=== PATIENT | female | born 1970 | race American Indian/Alaskan Native ===

== ENCOUNTER 2021-05-14 06:57 | Emergency (ER) | payer SELFPAY ==
--- NOTE | 2021-05-14 07:55 | Event Note ---
ED Screening Note Date of service: 05/14/21 Time: 07:50 ED Screening Note: 50-year-old female history of tobacco use presents emergency department chief complaint of chest pain and bilateral leg pain. Pain has been ongoing for the past few days. Reproducible with palpation. Denies any recent travel or immobilization, lower extremity edema. She describes pain as tightness nonradiating. This initial assessment/diagnostic orders/clinical plan/treatment(s) is/are subject to change based on patients health status, clinical progression and re- assessment by fellow clinical providers in the ED. Further treatment and workup at subsequent clinical providers discretion. Patient/guardian urged not to elope from the ED as their condition may be serious if not clinically assessed and managed. Initial orders include: Chest pain protocol
--- NOTE | 2021-05-14 08:20 | Emergency Department Report ---
ED Chest Pain HPI - General Chief Complaint: Chest Pain Stated Complaint: CHEST PAIN & SEVERE LEG PAIN Time Seen by Provider: 05/14/21 08:16 Source: patient Mode of arrival: Ambulatory Limitations: Physical Limitation - History of Present Illness Initial Comments: Patient presents with a 3 to 4-day history of chest pain and leg cramps. She describing a chest pain in the left anterior chest. This does not radiate or migrate. It is described as aching. It is worse with palpation. It is not worse with exertion. It does not change with position. She does not feel short of breath. She has never had pain like this before. Again, it has been present for 3 to 4 days and constant. She also reports having some "muscle spasms" in her legs. She states that the right leg is worse than the left but they both ache. She describes an intermittent pain in the thigh area. This is anterior only. She states that she just does not feel good. She does report that the calf area is also aching. She denies trauma. She denies recent travel. She has not taken anything [id number] for pain as of yet. - Related Data Home Medications Medication Instructions Recorded Confirmed Last Taken Pregabalin [Lyrica] 50 mg PO TID 05/14/21 05/14/21 Unknown Previous Rx's Medication Instructions Recorded Last Taken Type Ibuprofen [Motrin] 800 mg PO Q8HR PRN #20 tablet 05/14/21 Unknown Rx Metaxalone [Skelaxin] 800 mg PO TID #9 tablet 05/14/21 Unknown Rx Allergies Allergy/AdvReac Type Severity Reaction Status Date / Time tramadol AdvReac Itching Verified 05/14/21 07:28 Heart Score - HEART Score History: Slightly suspicious EKG: Normal Age: 45-65 Risk factors: 1-2 risk factors Troponin: < normal limit HEART Score: 2 - EKG Read Time Time EKG Completed: 07:39 EKG Read Time: 08:13 ED Review of Systems ROS: Stated complaint: CHEST PAIN & SEVERE LEG PAIN Other details as noted in HPI Comment: All other systems reviewed and negative Constitutional: denies: fever Eyes: denies: eye pain ENT: denies: throat pain Respiratory: denies: cough Cardiovascular: as per HPI Endocrine: denies: unexplained weight loss Gastrointestinal: denies: abdominal pain Genitourinary: denies: dysuria Musculoskeletal: as per HPI. denies: back pain Skin: denies: rash Neurological: denies: headache Hematological/Lymphatic: denies: easy bruising ED Past Medical Hx - Past Medical History Hx Hypertension: No Hx Diabetes: Yes (only takes insulin as needed) - Family History Family history: diabetes, other (Negative for heart disease) - Social History Smoking Status: Never Smoker Substance Use Type: None - Medications Home Medications: Home Medications Medication Instructions Recorded Confirmed Last Taken Type Ibuprofen [Motrin] 800 mg PO Q8HR PRN #20 tablet 05/14/21 Unknown Rx Metaxalone [Skelaxin] 800 mg PO TID #9 tablet 05/14/21 Unknown Rx Pregabalin [Lyrica] 50 mg PO TID 05/14/21 05/14/21 Unknown History ED Physical Exam - General Limitations: No Limitations, Other (Pulse ox noted and normal) General appearance: alert, in no apparent distress, obese, other (Appears uncomfortable) - Head Head exam: Present: atraumatic, normocephalic, normal inspection - Eye Eye exam: Present: normal appearance, PERRL, EOMI. Absent: scleral icterus - ENT ENT exam: Present: mucous membranes moist, normal external ear exam - Neck Neck exam: Present: normal inspection. Absent: meningismus - Respiratory Respiratory exam: Present: normal lung sounds bilaterally, chest wall tenderness (Left anterior chest which reproduces the patient's pain), other (No crepitus). Absent: respiratory distress - Cardiovascular Cardiovascular Exam: Present: regular rate, normal rhythm - GI/Abdominal GI/Abdominal exam: Present: soft. Absent: distended, tenderness - Extremities Exam Extremities exam: Present: normal capillary refill, other (Thigh tenderness bilaterally. No warmth or erythema. There is no knee tenderness.). Absent: calf tenderness - Back Exam Back exam: Absent: CVA tenderness (R), CVA tenderness (L) - Neurological Exam Neurological exam: Present: alert, oriented X3, CN II-XII intact. Absent: reflexes normal - Psychiatric Psychiatric exam: Present: normal affect, normal mood - Skin Skin exam: Present: warm, dry ED Course Vital Signs 05/14/21 05/14/21 05/14/21 07:28 07:52 08:52 Temperature 98.4 F Pulse Rate 100 H 75 Respiratory 18 Rate Blood Pressure 152/76 149/85 Blood Pressure [Left] O2 Sat by Pulse 100 100 100 Oximetry 05/14/21 05/14/21 05/14/21 09:00 09:05 09:10 Temperature 97.4 F L Pulse Rate 97 H 100 H Respiratory 10 L 15 Rate Blood Pressure 158/73 Blood Pressure 178/97 [Left] O2 Sat by Pulse 99 100 Oximetry 05/14/21 05/14/21 05/14/21 09:16 09:30 09:46 Temperature Pulse Rate 98 H 102 H 101 H Respiratory 11 L 8 L 9 L Rate Blood Pressure 178/97 177/87 167/130 Blood Pressure [Left] O2 Sat by Pulse 100 99 99 Oximetry 05/14/21 05/14/21 05/14/21 10:00 10:04 10:11 Temperature Pulse Rate 100 H 104 H 111 H Respiratory 11 L Rate Blood Pressure 161/90 161/90 153/81 Blood Pressure [Left] O2 Sat by Pulse 99 Oximetry 05/14/21 05/14/21 05/14/21 10:16 10:30 10:34 Temperature 97.4 F L Pulse Rate 99 H Respiratory Rate Blood Pressure 153/81 132/81 Blood Pressure [Left] O2 Sat by Pulse 98 100 Oximetry 05/14/21 05/14/21 05/14/21 10:46 11:00 11:02 Temperature Pulse Rate 96 H 98 H 95 H Respiratory 14 11 L Rate Blood Pressure 130/78 137/74 Blood Pressure [Left] O2 Sat by Pulse 99 99 Oximetry - Reevaluation(s) Reevaluation #1: 05/14/21 08:19 EKG have been noted. Old records reviewed. IV and labs were ordered. Reevaluation #2: 05/14/21 10:00 Labs have been reviewed. Heart score is normal. Patient got no symptomatic improvement from ketorolac. Nitro has been ordered. Repeat EKG and troponin have been ordered. Reevaluation #3: 05/14/21 11:18 Repeat labs have been noted. Patient is resting comfortably. She was discharged. KEZIA score - Kezia Score Age > 65: (0) No Aspirin use within the Past 7 Days: (0) No 3 or more CAD Risk Factors: (0) No 2 or more Angina events in past 24 hrs: (0) No Known CAD with more than 50% Stenosis: (0) No Elevated Cardiac Markers: (0) No ST Deviation Greater than 0.5mm: (0) No KEZIA Score: 0 ED Medical Decision Making - Lab Data Result diagrams: 05/14/21 08:21 05/14/21 08:21 Rhythm strip: Normal sinus rhythm without ectopy. Monitor observe 10 seconds - EKG Data -: EKG Interpreted by Ms - EKG Data 05/14/21 08:39 [id number]-EKG shows sinus tachycardia 103. QRS is normal at 64. QT corrected is nor mal at 454. Patient has no ST elevation to suggest STEMI. There is no ST depression suggestive of ischemia. There is good R wave progression. This is a normal EKG. 05/14/21 11:19 Second EKG was obtained and was unchanged. Intervals are normal. There was no ST segment elevation suggestive of [place]. - Radiology Data Radiology results: report reviewed - Medical Decision Making Patient presented with chest pain and "leg jumping." She was concern for possible muscle spasm versus electrolyte derangement. She has had a negative troponin x2. There is no evidence of ACS. She has a sufficiently low heart score that allows for outpatient evaluation. She does not have symptoms suggestive of PE or DVT. There was no pulse deficit to suggest aortic dissection. Radiographically, there was no pneumonia to account for her chest pain. Etiology for this leg spasm and pain is not known. There is no pulsatile mass to suggest aortic aneurysm. This is not visible as far as muscle spasm goes. She was treated symptomatically and referred for outpatient follow-up. Critical Care Time: No Critical care attestation.: If time is entered above; I have spent that time in minutes in the direct care of this critically ill patient, excluding procedure time. ED Disposition Clinical Impression: Left-sided chest pain, Bilateral leg pain Disposition: HOME / SELF CARE / HOMELESS Is pt being admited?: No Condition: Stable Instructions: Nonspecific Chest Pain, Adult, Pain Without a Known Cause Additional Instructions: Drink water. Return for problems. Follow-up with your regular doctor or the referral doctor for recheck. Do not drive while taking muscle relaxants. Prescriptions: Ibuprofen [Motrin] 800 mg PO Q8HR PRN #20 tablet PRN Reason: Pain, Moderate (4-6) Metaxalone [Skelaxin] 800 mg PO TID #9 tablet Referrals: PRIMARY CARE, [Primary Care Provider] - 3-5 Days JASMINA MARCOS MD [Staff Physician] - 3-5 Days
[2021-05-14] MEDS ORDERED: KETOROLAC 30 MG/1 ML INJ IV ONE (08:21)
[2021-05-14 09:02] LABS: Alanine Aminotransferase 18 units/L (7-56); Albumin 3.9 g/dL (3.9-5); BUN/Creatinine Ratio 10; Blood Urea Nitrogen 13 mg/dL (7-17); Calcium 9.8 mg/dL (8.4-10.2); Hemolysis Index 2
[2021-05-14 09:05] LABS: Basophils # (Auto) 0.1 K/mm3 (0.0-0.1); Basophils % (Auto) 0.8 % (0.0-1.8); Eosinophils # (Auto) 0.1 K/mm3 (0.0-0.4); Eosinophils % (Auto) 1.3 % (0.0-4.3); Hematocrit 27.4 % (30.3-42.9); Lymphocytes # (Auto) 2.6 K/mm3 (1.2-5.4); Lymphocytes % (Auto) 31.8 % (13.4-35.0); Mean Corpuscular HGB Conc 36 % (30-34); Mean Corpuscular Volume 91 fl (79-97); Monocytes # (Auto) 0.5 K/mm3 (0.0-0.8); Monocytes % (Auto) 5.7 % (0.0-7.3); Platelet Count 309 K/mm3 (140-440); Red Blood Count 3.02 M/mm3 (3.65-5.03)
--- NOTE | 2021-05-14 09:28 | XRay Report ---
CHEST 2 VIEWS INDICATION: Chest Pain. COMPARISON: none FINDINGS: Support devices: None. Heart: Within normal limits. Lungs/pleura: No acute air space or interstitial disease. No pneumothorax. Additional findings: None. IMPRESSION: No acute findings. Signer Name: Morales Mitchell Jr, MD Signed: 05/14/2021 9:23 AM Workstation Name: [id number]
[2021-05-14] MEDS: NITROGLYCERIN 0.4 MG TAB SUBL SL PRN ×2 (10:04→10:11)
[2021-05-14 10:10] LABS: INR 0.95 (0.87-1.13)
[2021-05-14] MEDS ORDERED: fentaNYL 100 MCG/2 ML INJ IV ONE (10:45)
--- NOTE | 2021-05-14 11:19 | Electrocardiograph Report ---
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
[2021-05-14 12:13] VITALS: BP 134/67
--- NOTE | 2021-05-15 10:04 | Electrocardiograph Report ---
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
== END 2021-05-14 12:45 | disposition home or self-care (01) ==
LOC: ED 06:57
DX: R07.89 Other chest pain (principal); M79.601 Pain in right arm; M79.602 Pain in left arm
CPT/HCPCS: 36415; 71046; 80053; 84484; 85025; 85610; 85730; 93005; 96374; 96375; 99284; J1885; J3010

== ENCOUNTER 2021-06-07 02:03 | Emergency (ER) | payer SELFPAY ==
[2021-06-07] MEDS: SODIUM CHLORIDE 0.9% 1000 ML 1,000 ML IV ONE (03:01)
[2021-06-07] MEDS: MORPHINE 2 MG/1 ML INJ IV ONE (03:01)
[2021-06-07] MEDS: ONDANSETRON 4 MG/2 ML INJ IV ONE (03:01)
--- NOTE | 2021-06-07 03:15 | Emergency Department Report ---
HPI - General Chief Complaint: Abdominal Pain Time Seen by Provider: 06/07/21 02:22 - HPI HPI: 4 to 5 days of diffuse abdominal severe intermittently constant sharp pain associated with nausea and about 4-5 episodes of yellow watery emesis today and no diarrhea constipation dysuria fever chills or any other associated symptoms. She has not taken any medications for this. Movement makes the pain worse and nothing makes the pain better. ED Past Medical Hx - Past Medical History Hx Hypertension: No Hx Diabetes: Yes (only takes insulin as needed) - Surgical History Past Surgical History?: No Additional Surgical History: Right arm rotator cuff repair - Family History Family history: no significant - Social History Smoking Status: Never Smoker Substance Use Type: None - Medications Home Medications: Home Medications Medication Instructions Recorded Confirmed Last Taken Type Ibuprofen [Motrin] 800 mg PO Q8HR PRN #20 tablet 05/14/21 Unknown Rx Metaxalone [Skelaxin] 800 mg PO TID #9 tablet 05/14/21 Unknown Rx Pregabalin [Lyrica] 50 mg PO TID 05/14/21 05/14/21 Unknown History Esomeprazole Magnesium [NexIUM] 40 mg PO QDAY #15 cap 06/07/21 Unknown Rx Ondansetron [Zofran Odt] 4 mg PO Q6H PRN #12 tab.rapdis 06/07/21 Unknown Rx ED Review of Systems ROS: Stated complaint: ABD PAIN Other details as noted in HPI Comment: All other systems reviewed and negative Physical Exam - Physical Exam Vital Signs: Vital Signs 06/07/21 06/07/21 02:20 02:22 Temperature 98.4 F Pulse Rate 98 H Respiratory 20 Rate Blood Pressure 115/80 [Left] O2 Sat by Pulse 100 100 Oximetry Physical Exam: Physical Exam Constitutional: General: Moderate acute distress. Appearance: No diaphoresis. HENT: Head: Normocephalic. Eyes: Pupils: Pupils are equal, round, and reactive to light. Neck: Musculoskeletal: Normal range of motion. Cardiovascular: Rate and Rhythm: Normal rate and regular rhythm. Pulses: Intact distal pulses. Heart sounds: Normal heart sounds. No murmur. Pulmonary: Effort: No respiratory distress. Breath sounds: No wheezing or rales. Chest: Chest wall: No tenderness. Abdominal: General: There is no distension. Palpations: There is no mass. Tenderness: There is diffuse mild to moderate abdominal tenderness with no pulsatile masses. There is no guarding or rebound. Musculoskeletal: Normal range of motion. Skin: General: Skin is warm and dry. Neurological: Mental Status: Alert and oriented to person, place, and time. Psychiatric: Mood and Affect: Mood and affect normal. Cognition and Memory: Memory normal. Judgment: Judgment normal. ED Course Vital Signs 06/07/21 06/07/21 02:20 02:22 Temperature 98.4 F Pulse Rate 98 H Respiratory 20 Rate Blood Pressure 115/80 [Left] O2 Sat by Pulse 100 100 Oximetry - Reevaluation(s) Reevaluation #1: 06/07/21 05:02 The patient felt better with the medications that we gave her in the emergency department. Her chemistries all look within normal limits other than a slightly elevated creatinine and some anemia that are probably both related. The patient did tell me that she has been told that she has chronic renal sufficiency in the past. CAT scan showed thickening of the stomach consistent with gastritis which is consistent with her symptoms. I will place her on proton pump inhibitor as well as antiemetics for the next several days and she will come back if any other issues arise otherwise follow-up with the physician I provided her. ED Medical Decision Making - Lab Data Result diagrams: 06/07/21 02:53 06/07/21 02:53 Critical care attestation.: If time is entered above; I have spent that time in minutes in the direct care of this critically ill patient, excluding procedure time. ED Disposition Clinical Impression: Gastritis Disposition: 01 HOME / SELF CARE / HOMELESS Is pt being admited?: No Does the pt Need Aspirin: No Condition: Stable Instructions: Abdominal Pain (ED), Gastritis, Adult, [id number] Prescriptions: Esomeprazole Magnesium [NexIUM] 40 mg PO QDAY #15 cap Ondansetron [Zofran Odt] 4 mg PO Q6H PRN #12 tab.rapdis PRN Reason: Nausea Referrals: PRIMARY CARE,MD [Primary Care Provider] - 3-5 Days Print Language: CROATIAN
[2021-06-07 03:31] LABS: Basophils # (Auto) 0.2 K/mm3 (0.0-0.1); Basophils % (Auto) 1.9 % (0.0-1.8); Eosinophils # (Auto) 0.2 K/mm3 (0.0-0.4); Eosinophils % (Auto) 1.7 % (0.0-4.3); Hematocrit 27.4 % (30.3-42.9); Lymphocytes # (Auto) 1.4 K/mm3 (1.2-5.4); Lymphocytes % (Auto) 14.6 % (13.4-35.0); Mean Corpuscular HGB Conc 33 % (30-34); Mean Corpuscular Volume 94 fl (79-97); Monocytes # (Auto) 0.6 K/mm3 (0.0-0.8); Monocytes % (Auto) 6.1 % (0.0-7.3); Platelet Count 432 K/mm3 (140-440); Red Blood Count 2.91 M/mm3 (3.65-5.03); Red Cell Distribution Width 17.5 % (13.2-15.2)
[2021-06-07 03:43] LABS: Albumin 3.7 g/dL (3.9-5); Bilirubin,Direct 0.3 mg/dL (0-0.2); Calcium 9.4 mg/dL (8.4-10.2)
--- NOTE | 2021-06-07 04:54 | Cat Scan Report ---
CT ABDOMEN AND PELVIS WITHOUT CONTRAST HISTORY: Lower abd pain with N/V and constipation x 7 days COMPARISON: None TECHNIQUE: Routine abdominal and pelvic CT exam performed without contrast. Lack of intravenous cont rast limits evaluation of the vascular and solid organs.. All CT scans at this location are performed using CT dose reduction for ALARA by means of automated exposure control. FINDINGS: CT ABDOMEN: Lung Bases: No significant abnormality. Liver: No significant abnormality. Biliary: No significant abnormality. Spleen: No significant abnormality. Unenlarged. Pancreas: No significant abnormality. Adrenals: No significant abnormality. Kidneys: No significant abnormality. Lymphatics: No lymphadenopathy. Vasculature: No significant abnormality. Bowel/Peritoneum: There is diffuse wall thickening in the distal stomach suggesting gastritis. There is no obstruction or free air. CT PELVIC: : No significant abnormality. Lymphatics: No lymphadenopathy. Osseous Structures: No aggressive appearing osseous lesions. Additional Findings: None IMPRESSION: 1. Wall thickening in the distal stomach suggesting gastritis. No obstruction or free air. Signer Name: Raciel Browne MD Signed: 06/07/2021 4:49 AM Workstation Name: [id number]
[2021-06-07] MEDS: PANTOPRAZOLE 40 MG INJ IV ONE (05:39)
[2021-06-07 06:30] VITALS: BP 135/79
== END 2021-06-07 06:29 | disposition home or self-care (01) ==
LOC: ED 02:03
DX: K29.70 Gastritis, unspecified, without bleeding (principal); E11.9 Type 2 diabetes mellitus without complications; Z88.6 Allergy status to analgesic agent; Z79.899 Other long term (current) drug therapy
CPT/HCPCS: 36415; 74176; 80048; 80076; 83690; 85025; 87040; 96361; 96374; 96375; 99284; C9113; J2270; J2405; J7030; Q0162

== ENCOUNTER 2021-06-27 17:30 | Emergency (ER) | payer SELFPAY ==
[2021-06-28] MEDS ORDERED: SUCRALFATE 1 GM/10 ML ORAL LIQD PO ONE (00:33)
[2021-06-28] MEDS ORDERED: ACETAMINOPHEN 325 MG TAB PO ONE (00:33)
[2021-06-28] MEDS ORDERED: PANTOPRAZOLE 40 MG TAB PO ONE (00:33)
[2021-06-28] MEDS ORDERED: ONDANSETRON 4 MG ODT TAB PO STA (00:34)
--- NOTE | 2021-06-28 00:35 | Emergency Department Report ---
ED General Adult HPI - General Chief complaint: Pain General Stated complaint: PAIN Time Seen by Provider: 06/28/21 00:24 Source: patient, RN notes reviewed, old records reviewed Mode of arrival: Ambulatory Limitations: No Limitations - History of Present Illness Initial comments: This is a 50-year-old female who is a long-term tobacco smoker, who was p resumptively diagnosed with gastritis based off the CT scan result at this hospital a few weeks ago. The patient presents to the ER with a complaint of a few weeks lower abdominal cramping, constipation, and epigastric burning, without improvement in symptoms. The patient is still smoking. The patient denies travel, surgery, immobilization, DVT/PE risk factors. The patient denies dysuria. She had some nausea and vomiting, which was clear, yellow, green, and occasionally bloody. It is now resolved. She denies bright red blood per rectum. The symptoms have been going on for weeks to months. Has not followed up with an outpatient primary care doctor or GI physician that she is aware of. -: week(s) Location: abdomen Radiation: abdomen Quality: aching Consistency: constant Improves with: rest Worsens with: eating, movement - Related Data Previous Rx's Medication Instructions Recorded Last Taken Type Esomeprazole Magnesium [NexIUM] 40 mg PO QDAY #15 cap 06/28/21 Unknown Rx Ferrous Sulfate [Ferrous Sulfate 324 mg PO BID #60 tab 06/28/21 Unknown Rx 324 MG] Multivitamin with Folic Acid [Cvs 400 mcg PO QDAY #30 tablet 06/28/21 Unknown Rx One Daily Essential Tablet] Nicotine Polacrilex [Nicotine Gum] 4 mg BC PRN #1 pack 06/28/21 Unknown Rx Ondansetron [Zofran ODT TAB] 4 mg PO Q6H PRN #12 tab.rapdis 06/28/21 Unknown Rx polyethylene glycoL 3350 [Miralax 17 gm PO QDAY #30 packet 06/28/21 Unknown Rx 3350] Allergies Allergy/AdvReac Type Severity Reaction Status Date / Time tramadol AdvReac Itching Verified 05/14/21 07:28 ED Review of Systems ROS: Stated complaint: CHEST PAINS/SOB Other details as noted in HPI Constitutional: denies: fever Eyes: denies: eye discharge ENT: denies: hearing loss Respiratory: denies: wheezing Cardiovascular: chest pain (Epigastric abdominal) Gastrointestinal: abdominal pain, nausea, vomiting, constipation. denies: melena, hematochezia Genitourinary: denies: dysuria Musculoskeletal: myalgia Skin: other (Lower extremity) Neurological: denies: weakness ED Past Medical Hx - Past Medical History Hx Hypertension: No Hx Diabetes: Yes (only takes insulin as needed) - Surgical History Additional Surgical History: Right arm rotator cuff repair - Social History Smoking Status: Never Smoker Substance Use Type: None - Medications Home Medications: Home Medications Medication Instructions Recorded Confirmed Last Taken Type Esomeprazole Magnesium [NexIUM] 40 mg PO QDAY #15 cap 06/28/21 Unknown Rx Ferrous Sulfate [Ferrous Sulfate 324 mg PO BID #60 tab 06/28/21 Unknown Rx 324 MG] Multivitamin with Folic Acid [Cvs 400 mcg PO QDAY #30 tablet 06/28/21 Unknown Rx One Daily Essential Tablet] Nicotine Polacrilex [Nicotine Gum] 4 mg BC PRN #1 pack 06/28/21 Unknown Rx Ondansetron [Zofran ODT TAB] 4 mg PO Q6H PRN #12 tab.rapdis 06/28/21 Unknown Rx polyethylene glycoL 3350 [Miralax 17 gm PO QDAY #30 packet 06/28/21 Unknown Rx 3350] ED Physical Exam - General Limitations: No Limitations General appearance: alert, in no apparent distress - Head Head exam: Present: atraumatic, normocephalic - Eye Eye exam: Present: normal appearance, EOMI. Absent: nystagmus - ENT ENT exam: Present: normal exam, normal orophraynx, mucous membranes moist, normal external ear exam - Neck Neck exam: Present: normal inspection, full ROM - Respiratory Respiratory exam: Present: normal lung sounds bilaterally, chest wall tenderness. Absent: respiratory distress, wheezes, rales, rhonchi, stridor, decreased breath sounds - Cardiovascular Cardiovascular Exam: Present: regular rate, normal rhythm, normal heart sounds. Absent: bradycardia, tachycardia, irregular rhythm, systolic murmur, diastolic murmur, rubs, gallop - GI/Abdominal GI/Abdominal exam: Present: soft, tenderness, other (There is epigastric tenderness to palpation.). Absent: distended, guarding, rebound, rigid, pulsatile mass - Extremities Exam Extremities exam: Present: normal inspection, full ROM, pedal edema (1+ edema bilateral lower extremity), other (2+ pulses noted in the bilateral upper and lower extremities. There is no palpable cord. negative Homans sign. Muscular compartments are soft. The pelvis is stable.). Absent: calf tenderness - Back Exam Back exam: Present: normal inspection. Absent: tenderness, CVA tenderness (R), CVA tenderness (L), paraspinal tenderness, vertebral tenderness - Neurological Exam Neurological exam: Present: alert, oriented X3, other (No facial droop. Tongue midline. Extraocular movements intact bilaterally. Facial sensation intact to light touch in V1, V2, V3 distribution bilaterally. 5 and a 5 strength in 4 extremities. Sensation intact to light touch in 4 extremities.). Absent: motor sensory deficit - Psychiatric Psychiatric exam: Present: normal affect, normal mood - Skin Skin exam: Present: warm, dry, intact, normal color. Absent: rash ED Course Vital Signs 06/27/21 06/28/21 06/28/21 17:50 01:24 02:29 Temperature 98.8 F 98.6 F Pulse Rate 98 H 76 Respiratory 16 20 Rate Blood Pressure 152/76 146/79 [Right] O2 Sat by Pulse 100 96 Oximetry O2 Sat by Pulse 99 Oximetry [ Digit-Finger] - Reevaluation(s) Reevaluation #1: 06/28/21 02:17 Differential diagnosis, including but not limited to: GERD, gastritis, hiatal hernia, costochondritis, pneumonia, encounter for tobacco cessation, dependent edema, renal insufficiency, hepatic insufficiency, vitamin deficiency Assessment and plan: 50-year-old female, who is afebrile, with reassuring vital signs, clinically sober, with a GCS of 15, who is not currently tachycardic, tachypneic or hypoxic, who is low risk by Wells criteria for pulmonary embolism, who is low risk for major adverse cardiac event as per heart score, who is presenting with subacute/chronic epigastric and abdominal pain present for weeks. She has had a CT scan of the abdomen pelvis at this facility which suggested gastritis. The patient continues to smoke. The patient has not had an endoscopic evaluation. Her EKG is unremarkable. Her laboratory studies show improved renal function, chronic anemia, and unremarkable hepatic function. Patient educated as to the natural history of gastritis. I extensively counseled the patient to discontinue tobacco consumption. Patient also advised that she does not have insurance. Patient advised to go to the [employer] website, and apply for insurance. Patient also advised that she may consider using the funds that she provides for tobacco and smoke products to instead pay for private health i nsurance. Patient also advised that she may qualify for financial assistance, depending on her application. Patient is observed in this ER for hours without clinical decompensation. The patient will need to follow-up with an outpatient primary care doctor, and/or training project manager. Troponin negative x1 in the context of weeks of symptoms. 06/28/21 02:18 06/28/21 02:29 Went back to evaluate the patient, and she was laying on her left side, crying, and stating that her abdomen was really hurting her. I suspect that this is constipation. However, we will place an IV, give pain medication, and obtain CT scan of the abdomen pelvis to assess for interval change 06/28/21 03:[address] scan of the abdomen pelvis negative for acute findings. Patient appears improved. Ambulatory with a steady gait. May follow-up as an outpatient. - Pulse Oximetry Interpretation Digit-Finger Initial Pulse Oximetry Readin O2 Sat by Pulse Oximetry: 99 Actions Taken: none ED Medical Decision Making - Lab Data Result diagrams: 06/28/21 00:40 06/28/21 00:40 Vital Signs 06/27/21 06/28/21 17:50 01:24 Temperature 98.8 F 98.6 F Pulse Rate 98 H 76 Respiratory 16 20 Rate Blood Pressure 152/76 146/79 [Right] O2 Sat by Pulse 100 96 Oximetry Lab Results 06/28/21 06/28/21 06/28/21 Range/Units 00:40 00:40 00:40 WBC 8.3 (4.5-11.0) K/mm3 RBC 2.86 L (3.65-5.03) M/mm3 Hgb 9.2 L (10.1-14.3) gm/dl Hct 26.8 L (30.3-42.9) % MCV 94 (79-97) fl MCH 32 (28-32) pg MCHC 35 H (30-34) % RDW 15.2 (13.2-15.2) % Plt Count 300 (140-440) K/mm3 PT 13.8 (12.2-14.9) Sec. INR 0.96 (0.87-1.13) APTT 33.5 (24.2-36.6) Sec. Sodium 142 (137-145) mmol/L Potassium 3.9 (3.6-5.0) mmol/L Chloride 107.2 H (98-107) mmol/L Carbon Dioxide 22 (22-30) mmol/L Anion Gap 17 mmol/L BUN 11 (7-17) mg/dL Creatinine 1.1 (0.6-1.2) mg/dL Estimated GFR > 60 ml/min BUN/Creatinine Ratio 10 % Glucose 97 (65-100) mg/dL Calcium 9.1 (8.4-10.2) mg/dL Magnesium (1.7-2.3) mg/dL Total Bilirubin 0.30 (0.1-1.2) mg/dL AST 17 (5-40) units/L ALT 16 (7-56) units/L Alkaline Phosphatase 111 (35-129) units/L Troponin T < 0.010 (0.00-0.029) ng/mL Total Protein 6.3 (6.3-8.2) g/dL Albumin 3.7 L (3.9-5) g/dL Albumin/Globulin Ratio 1.4 % 06/28/21 Range/Units 00:40 WBC (4.5-11.0) K/mm3 RBC (3.65-5.03) M/mm3 Hgb (10.1-14.3) gm/dl Hct (30.3-42.9) % MCV (79-97) fl MCH (28-32) pg MCHC (30-34) % RDW (13.2-15.2) % Plt Count (140-440) K/mm3 PT (12.2-14.9) Sec. INR (0.87-1.13) APTT (24.2-36.6) Sec. Sodium (137-145) mmol/L Potassium (3.6-5.0) mmol/L Chloride (98-107) mmol/L Carbon Dioxide (22-30) mmol/L Anion Gap mmol/L BUN (7-17) mg/dL Creatinine (0.6-1.2) mg/dL Estimated GFR ml/min BUN/Creatinine Ratio % Glucose (65-100) mg/dL Calcium (8.4-10.2) mg/dL Magnesium 1.90 (1.7-2.3) mg/dL Total Bilirubin (0.1-1.2) mg/dL AST (5-40) units/L ALT (7-56) units/L Alkaline Phosphatase (35-129) units/L Troponin T (0.00-0.029) ng/mL Total Protein (6.3-8.2) g/dL Albumin (3.9-5) g/dL Albumin/Globulin Ratio % - EKG Data -: EKG Interpreted by Nv EKG shows normal: sinus rhythm Rate: normal - EKG Data 06/28/21 02:14 The EKG today is interpreted at 17: 44 Sinus rhythm, 99 bpm. Normal axis, normal P wave axis, QTC 4 5 9 ms. Nonspecific abnormalities, not a STEMI. High left ventricular voltage. Unchanged from prior EKG from May 2021 - Radiology Data Radiology results: pending, report reviewed, image reviewed CT ABDOMEN AND PELVIS WITH CONTRAST INDICATION / CLINICAL INFORMATION: Acute lower abdominal pain. TECHNIQUE: Axial CT images were obtained through the abdomen and pelvis after 100 cc Omnipaque [address] scans at this location are performed using CT dose reduction for Picreel by means of automated exposure control. COMPARISON: CT abdomen and pelvis without contrast from 06/07/2021. FINDINGS: LOWER CHEST: No significant abnormality. LIVER: No significant abnormality. GALLBLADDER: No significant abnormality. BILE DUCTS: No significant abnormality. PANCREAS: No significant abnormality. SPLEEN: No significant abnormality. ADRENALS: No significant abnormality. RIGHT KIDNEY/URETER: No significant abnormality. LEFT KIDNEY/URETER: No significant abnormality. STOMACH/SMALL BOWEL: Previously reported gastric thickening is again noted along the distal gastric body and gastric antrum. No other acute findings. COLON: No significant abnormality. APPENDIX: No significant abnormality. PERITONEUM: No free fluid. No free air. No fluid collection. LYMPH NODES: No significant adenopathy. VASCULATURE: No significant abnormality. URINARY BLADDER: No significant abnormality. REPRODUCTIVE ORGANS: No significant abnormality. ADDITIONAL FINDINGS: None. BONES: No acute findings or significant interval changes. IMPRESSION: Persistent gastric thickening is most concerning for gastritis. No other acute findings. Signer Name: Juan Pratt MD Signed: 06/28/2021 2:31 AM Workstation Name: [id number] CT ABDOMEN AND PELVIS WITHOUT CONTRAST HISTORY: Lower abd pain with N/V and constipation x 7 days COMPARISON: None TECHNIQUE: Routine abdominal and pelvic CT exam performed without contrast. Lack of intravenous contrast limits evaluation of the vascular and solid organs.. All CT scans at this location are performed using CT dose reduction for ALARA by means of automated exposure control. FINDINGS: CT ABDOMEN: Lung Bases: No significant abnormality. Liver: No significant abnormality. Biliary: No significant abnormality. Spleen: No significant abnormality. Unenlarged. Pancreas: No significant abnormality. Adren als: No significant abnormality. Kidneys: No significant abnormality. Lymphatics: No lymphadenopathy. Vasculature: No significant abnormality. Bowel/Peritoneum: There is diffuse wall thickening in the distal stomach suggesting gastritis. There is no obstruction or free air. CT PELVIC: : No significant abnormality. Lymphatics: No lymphadenopathy. Osseous Structures: No aggressive appearing osseous lesions. Additional Findings: None IMPRESSION: 1. Wall thickening in the distal stomach suggesting gastritis. No obstruction or free air. Signer Name: Raciel Browne MD Signed: 06/07/2021 3:49 AM Workstation Name: [id number][id number] ABDOMEN 3 VIEW(S) INDICATION: Chest and abdominal pain. COMPARISON: CT abdomen and pelvis without contrast from 06/07/2021. FINDINGS: Bowel gas pattern: No significant abnormality. Free air: None seen. Stones: None seen. Chest: No acute findings. Additional Findings: No additional significant findings. IMPRESSION: 1. No acute findings. Signer Name: Juan Pratt MD Signed: 06/28/2021 12:07 AM Workstation Name: [id number] Critical care attestation.: If time is entered above; I have spent that time in minutes in the direct care of this critically ill patient, excluding procedure time. ED Disposition Clinical Impression: Anemia, Encounter for tobacco use cessation counseling, Epigastric abdominal pain, Swelling of lower extremity, Lower abdominal pain Disposition: 01 HOME / SELF CARE / HOMELESS Is pt being admited?: No Does the pt Need Aspirin: No Condition: Good Additional Instructions: Recommend that the patient discontinue tobacco consumption immediately. Long- term consumption of tobacco is a risk factor for stroke, heart attack, disability, and loss of quality of life. Tobacco consumption may also irritate the lining of the stomach and intestines. In terms of the patient's complaint of constipation, please consume 6 cups of water per day, plenty of fiber, vegetables, and lean protein, patient may take the MiraLAX medication as needed and directed. Please note that diet and lifestyle modifications typically take 4 to 6 weeks to improve symptoms of constipation. We also anticipate that it will take weeks to months to improve patient's epigastric abdominal pain, which is likely gastritis. We do recommend that the patient follow-up with a training project manager, such as those who work at [facility] for presumed gastritis, for endoscopic evaluation, within the next 6 weeks. We also recommend that the patient follow-up with a primary care doctor within the next month to establish outpatient primary care. Recommend that the patient avoid consumption of alcohol, tobacco, and smoke products. Recommend that patient take a multivitamin as directed. Patient may take an [id number] Tylenol or Pepcid as needed for physical pain. Patient also found to have mild anemia, and should also follow-up with the outpatient training project manager for evaluation for colonoscopy, to screen for colon cancer. Patient may take the iron sulfate supplementation as directed, as needed for anemia, where the patient may consume foods that are high in protein and iron, such as red meat, salmon, fish, chicken, and green leafy vegetables. Iron sulfate may cause constipation, and black tarry stools. Patient may take the MiraLAX as needed for constipation. Please return to the emergency room right away with new pain, worsened pain, migration of pain, projectile vomiting, change in mental status, confusion, inability tolerate liquid feeds, new, worsened or different symptoms not present on the initial emergency room evaluation [facility] is a local gastroenterology practice. The [facility] is a local Medical Center. Patient may reference to [employer] website and apply for private health ins urance. The patient may qualify for financial services education consultant, she is encouraged to go to the website, and follow the instructions Prescriptions: Multivitamin with Folic Acid [Cvs One Daily Essential Tablet] 400 mcg PO QDAY #30 tablet Ferrous Sulfate [Ferrous Sulfate 324 MG] 324 mg PO BID #60 tab polyethylene glycoL 3350 [Miralax 3350] 17 gm PO QDAY #30 packet Esomeprazole Magnesium [NexIUM] 40 mg PO QDAY #15 cap Nicotine Polacrilex [Nicotine Gum] 4 mg BC PRN #1 pack Ondansetron [Zofran ODT TAB] 4 mg PO Q6H PRN #12 tab.rapdis PRN Reason: Nausea Referrals: [facility] [Provider Group] - 3-5 Days [facility] [Provider Group] - 3-5 Days Forms: Work/School Release Form(ED)
[2021-06-28 00:53] LABS: Hematocrit 26.8 % (30.3-42.9); Hemoglobin 9.2 gm/dl (10.1-14.3); Mean Corpuscular HGB Conc 35 % (30-34); Mean Corpuscular Volume 94 fl (79-97); Platelet Count 300 K/mm3 (140-440); Red Blood Count 2.86 M/mm3 (3.65-5.03); Red Cell Distribution Width 15.2 % (13.2-15.2)
[2021-06-28 01:03] LABS: INR 0.96 (0.87-1.13)
[2021-06-28 01:04] LABS: Partial Thromboplastin Time 33.5 Sec. (24.2-36.6)
--- NOTE | 2021-06-28 01:12 | XRay Report ---
ABDOMEN 3 VIEW(S) INDICATION: Chest and abdominal pain. COMPARISON: CT abdomen and pelvis without contrast from 06/07/2021. FINDINGS: Bowel gas pattern: No significant abnormality. Free air: None seen. Stones: None seen. Chest: No acute findings. Additional Findings: No additional significant findings. IMPRESSION: 1. No acute findings. Signer Name: Juan Pratt MD Signed: 06/28/2021 1:07 AM Workstation Name: [id number]
[2021-06-28 01:26] VITALS: BP 146/79
[2021-06-28 02:02] LABS: Alanine Aminotransferase 16 units/L (7-56); Albumin 3.7 g/dL (3.9-5); BUN/Creatinine Ratio 10; Blood Urea Nitrogen 11 mg/dL (7-17); Calcium 9.1 mg/dL (8.4-10.2); Hemolysis Index 8
[2021-06-28] MEDS ORDERED: ONDANSETRON 4 MG/2 ML INJ IV ONE (02:28)
[2021-06-28] MEDS ORDERED: MORPHINE 4 MG/1 ML INJ IV ONE (02:28)
--- NOTE | 2021-06-28 03:36 | Cat Scan Report ---
CT ABDOMEN AND PELVIS WITH CONTRAST INDICATION / CLINICAL INFORMATION: Acute lower abdominal pain. TECHNIQUE: Axial CT images were obtained through the abdomen and pelvis after 100 cc Omnipaque [address] scans at this location are performed using CT dose reduction for ALARA by means of automated exposure control. COMPARISON: CT abdomen and pelvis without contrast from 06/07/2021. FINDINGS: LOWER CHEST: No significant abnormality. LIVER: No significant abnormality. GALLBLADDER: No significant abnormality. BILE DUCTS: No significant abnormality. PANCREAS: No significant abnormality. SPLEEN: No significant abnormality. ADRENALS: No significant abnormality. RIGHT KIDNEY/URETER: No significant abnormality. LEFT KIDNEY/URETER: No significant abnormality. STOMACH/SMALL BOWEL: Previously reported gastric thickening is again noted along the distal gastric b rasheed and gastric antrum. No other acute findings. COLON: No significant abnormality. APPENDIX: No significant abnormality. PERITONEUM: No free fluid. No free air. No fluid collection. LYMPH NODES: No significant adenopathy. VASCULATURE: No significant abnormality. URINARY BLADDER: No significant abnormality. REPRODUCTIVE ORGANS: No significant abnormality. ADDITIONAL FINDINGS: None. BONES: No acute findings or significant interval changes. IMPRESSION: Persistent gastric thickening is most concerning for gastritis. No other acute findings. Signer Name: Juan Pratt MD Signed: 06/28/2021 3:31 AM Workstation Name: [id number]
--- NOTE | 2021-06-29 16:57 | Electrocardiograph Report ---
[facility] Test Date: 2021-06-27 Test Time: 17:44:27 Pat Name: ESTEFANI BECKER Department: Room: Gender: F Sas Developer Analyst: MARIOLA : 1970 Requested By: CHA GARCIA Order Number: [id number] Reading MD: Bal Spencer Measurements Intervals [place] Rate: 99 P: 83 AK: 130 QRS: 60 QRSD: 66 T: 76 QT: 358 QTc: 459 Interpretive Statements Sinus rhythm Compared to ECG 05/14/2021 10:28:08 No significant change Electronically Signed On 06-29-2021 16:56:32 EDT by Bal Spencer
== END 2021-06-28 04:07 | disposition home or self-care (01) ==
LOC: ED 17:30
DX: D64.9 Anemia, unspecified (principal); R10.13 Epigastric pain; R10.30 Lower abdominal pain, unspecified; R22.40 Localized swelling, mass and lump, unspecified lower limb; E11.9 Type 2 diabetes mellitus without complications; Z88.6 Allergy status to analgesic agent; Z79.899 Other long term (current) drug therapy
CPT/HCPCS: 36415; 74022; 74177; 80053; 83735; 84484; 85027; 85610; 85730; 93005; 96374; 96375; 99284; J2270; J2405; Q9967; J3490; Q0162

== ENCOUNTER 2021-08-16 03:06 | Emergency (ER) | payer SELFPAY ==
[2021-08-16] MEDS ORDERED: MORPHINE 4 MG/1 ML INJ IV ONE (14:28)
[2021-08-16] MEDS ORDERED: SODIUM CHLORIDE 0.9% 1000 ML 1,000 ML IV ONE (14:28)
[2021-08-16] MEDS ORDERED: ONDANSETRON 4 MG/2 ML INJ IV ONE (14:28)
[2021-08-16 15:35] LABS: Basophils % (Auto) 0.7 % (0.0-1.8); Eosinophils # (Auto) 0.1 K/mm3 (0.0-0.4); Hematocrit 29.8 % (30.3-42.9); Hemoglobin 9.7 gm/dl (10.1-14.3); Lymphocytes # (Auto) 1.8 K/mm3 (1.2-5.4); Lymphocytes % (Auto) 34.6 % (13.4-35.0); Mean Corpuscular HGB Conc 33 % (30-34); Mean Corpuscular Volume 90 fl (79-97); Monocytes # (Auto) 0.5 K/mm3 (0.0-0.8); Monocytes % (Auto) 9.3 % (0.0-7.3); Platelet Count 284 K/mm3 (140-440); Red Blood Count 3.32 M/mm3 (3.65-5.03); Red Cell Distribution Width 15.4 % (13.2-15.2)
[2021-08-16 16:07] LABS: Bilirubin,Urine NEG (Negative); Blood,Urine NEG (Negative); Color,Urine Yellow (Yellow); Protein,Urine <15 mg/dL mg/dL (Negative); Urobilinogen,Urine < 2.0 mg/dL (<2.0)
[2021-08-16 16:09] LABS: Bacteria,Urine 2+ /HPF (Negative); Mucus,Urine FEW /HPF
[2021-08-16 16:15] LABS: Alanine Aminotransferase 6 units/L (7-56); Albumin 3.8 g/dL (3.9-5); BUN/Creatinine Ratio 12; Blood Urea Nitrogen 14 mg/dL (7-17); Calcium 9.2 mg/dL (8.4-10.2); Hemolysis Index 3
[2021-08-16 16:21] LABS: Bilirubin,Direct < 0.2 mg/dL (0-0.2)
[2021-08-16 16:23] LABS: HCG Qualitative,Urine Positive (Negative)
--- NOTE | 2021-08-16 16:36 | Emergency Department Report ---
<KATIANA RAMOS - Last Filed: 08/16/21 17:23> ED Abdominal Pain HPI - General Chief Complaint: Abdominal Pain Stated Complaint: ABDOMINAL PAIN Time Seen by Provider: 08/16/21 14:14 Source: patient, EMS Mode of arrival: Stretcher Limitations: No Limitations - History of Present Illness Initial Comments: This is a 50-year-old female nontoxic, well nourished in appearance, no acute signs of distress presents to the ED with c/o of nausea and vomiting and pelvic pain 2 weeks. Patient stated has some diarrhea. Patient describes vomiting as food content and yellow gastric acid. Patient describes pelvic pain as cramping and aching with level of 8/10 diffuse. Patient denies chest pain, short of breath, fever, hemoptysis, blood in stool, chills, headache, stiff neck, numbness or tingling. Patient denies any diarrhea or constipation. Denies any blood in stool. Patient denies any recent travels. Patient stated allergies to tramadol. Patient stated last menstrual cycle was in about 2013. -: week(s) Radiation: other (pelvic) Migration to: no migration Severity: mild Severity scale (0 -10): 8 Quality: cramping, aching Consistency: intermittent Improves With: nothing Worsens With: nothing Associated Symptoms: nausea, vomiting, diarrhea. denies: fever, chills, constipation, dysuria, hematemesis, hematochezia, melena, hematuria, anorexia, syncope - Related Data Previous Rx's Medication Instructions Recorded Last Taken Type Esomeprazole Magnesium [NexIUM] 40 mg PO QDAY #15 cap 06/28/21 Unknown Rx Ferrous Sulfate [Ferrous Sulfate 324 mg PO BID #60 tab 06/28/21 Unknown Rx 324 MG] Multivitamin with Folic Acid [[facility] 400 mcg PO QDAY #30 tablet 06/28/21 Unknown Rx One Daily Essential Tablet] Nicotine Polacrilex [Nicotine Gum] 4 mg BC PRN #1 pack 06/28/21 Unknown Rx Ondansetron [Zofran ODT TAB] 4 mg PO Q6H PRN #12 tab.rapdis 06/28/21 Unknown Rx polyethylene glycoL 3350 [Miralax 17 gm PO QDAY #30 packet 06/28/21 Unknown Rx 3350] HYDROcodone/APAP 5-325 [[place] 1 each PO Q6HR PRN #5 tablet 08/16/21 Unknown Rx 5/325] Allergies Allergy/AdvReac Type Severity Reaction Status Date / Time tramadol AdvReac Itching Verified 05/14/21 07:28 ED Review of Systems Comment: All other systems reviewed and negative Constitutional: denies: chills, fever Eyes: denies: eye pain, eye discharge, vision change ENT: denies: ear pain, throat pain Respiratory: denies: cough, shortness of breath, wheezing Cardiovascular: denies: chest pain, palpitations Endocrine: no symptoms reported Gastrointestinal: nausea, vomiting, other (pelvic pain). denies: abdominal pain, diarrhea, constipation, hematemesis, melena, hematochezia Genitourinary: denies: urgency, dysuria, discharge Musculoskeletal: denies: back pain, joint swelling, arthralgia Skin: denies: rash, lesions Neurological: denies: headache, weakness, paresthesias Psychiatric: denies: anxiety, depression Hematological/Lymphatic: denies: easy bleeding, easy bruising ED Past Medical Hx - Past Medical History Hx Hypertension: No Hx Diabetes: Yes (only takes insulin as needed) - Surgical History Additional Surgical History: Right arm rotator cuff repair - Social History Smoking Status: Never Smoker Substance Use Type: None - Medications Home Medications: Home Medications Medication Instructions Recorded Confirmed Last Taken Type Esomeprazole Magnesium [NexIUM] 40 mg PO QDAY #15 cap 06/28/21 Unknown Rx Ferrous Sulfate [Ferrous Sulfate 324 mg PO BID #60 tab 06/28/21 Unknown Rx 324 MG] Multivitamin with Folic Acid [[facility] 400 mcg PO QDAY #30 tablet 06/28/21 Unknown Rx One Daily Essential Tablet] Nicotine Polacrilex [Nicotine Gum] 4 mg BC PRN #1 pack 06/28/21 Unknown Rx Ondansetron [Zofran ODT TAB] 4 mg PO Q6H PRN #12 tab.rapdis 06/28/21 Unknown Rx polyethylene glycoL 3350 [Miralax 17 gm PO QDAY #30 packet 06/28/21 Unknown Rx 3350] HYDROcodone/APAP 5-325 [[place] 1 each PO Q6HR PRN #5 tablet 08/16/21 Unknown Rx 5/325] ED Physical Exam - General Limitations: No Limitations General appearance: alert, in no apparent distress - Head Head exam: Present: atraumatic, normocephalic - Eye Eye exam: Present: normal appearance - Neck Neck exam: Present: normal inspection, full ROM. Absent: tenderness, meningismus, lymphadenopathy - Respiratory Respiratory exam: Present: normal lung sounds bilaterally. Absent: respiratory distress, wheezes, rales, rhonchi, stridor, chest wall tenderness, accessory muscle use, decreased breath sounds, prolonged expiratory - Cardiovascular Cardiovascular Exam: Present: regular rate, normal rhythm, normal heart sounds. Absent: bradycardia, tachycardia, irregular rhythm, systolic murmur, diastolic murmur, rubs, gallop - GI/Abdominal GI/Abdominal exam: Present: soft, tenderness (lower abdomen area), normal bowel sounds. Absent: distended, guarding, rebound, rigid, diminished bowel sounds - Extremities Exam Extremities exam: Present: normal inspection, full ROM, normal capillary refill. Absent: tenderness - Back Exam Back exam: Present: normal inspection, full ROM. Absent: tenderness, CVA tenderness (R), CVA tenderness (L), muscle spasm, paraspinal tenderness, vertebral tenderness, rash noted - Neurological Exam Neurological exam: Present: alert, oriented X3, normal gait - Psychiatric Psychiatric exam: Present: normal affect, normal mood - Skin Skin exam: Present: warm, dry, intact, normal color. Absent: rash ED Course - Reevaluation(s) Reevaluation #1: 08/16/21 16:39 Patient is speaking in full sentences with no signs of distress noted. - Consultations Consultation #1: 08/16/21 17:24 At this time patient is signed out to Sania Matthew during for further evaluation, treatment, and appropriate disposition. ED Medical Decision Making - Lab Data Result diagrams: 08/16/21 15:03 08/16/21 15:03 Lab Results 08/16/21 08/16/21 08/16/21 Range/Units 15:03 15:03 15:03 WBC 5.1 (4.5-11.0) K/mm3 RBC 3.32 L (3.65-5.03) M/mm3 Hgb 9.7 L (10.1-14.3) gm/dl Hct 29.8 L (30.3-42.9) % MCV 90 (79-97) fl MCH 29 (28-32) pg MCHC 33 (30-34) % RDW 15.4 H (13.2-15.2) % Plt Count 284 (140-440) K/mm3 Lymph % (Auto) 34.6 (13.4-35.0) % [place] % (Auto) 9.3 H (0.0-7.3) % Eos % (Auto) 2.0 (0.0-4.3) % Baso % (Auto) 0.7 (0.0-1.8) % Lymph # (Auto) 1.8 (1.2-5.4) K/mm3 [place] # (Auto) 0.5 (0.0-0.8) K/mm3 Eos # (Auto) 0.1 (0.0-0.4) K/mm3 Baso # (Auto) 0.0 (0.0-0.1) K/mm3 Seg Neutrophils % 53.4 (40.0-70.0) % Seg Neutrophils # 2.7 (1.8-7.7) K/mm3 Sodium (137-145) mmol/L Potassium (3.6-5.0) mmol/L Chloride (98-107) mmol/L Carbon Dioxide (22-30) mmol/L Anion Gap mmol/L BUN (7-17) mg/dL Creatinine (0.6-1.2) mg/dL Estimated GFR ml/min BUN/Creatinine Ratio % Glucose (65-100) mg/dL Calcium (8.4-10.2) mg/dL Total Bilirubin (0.1-1.2) mg/dL Direct Bilirubin (0-0.2) mg/dL Indirect Bilirubin mg/dL AST (5-40) units/L ALT (7-56) units/L Alkaline Phosphatase (35-129) units/L Total Protein (6.3-8.2) g/dL Albumin (3.9-5) g/dL Albumin/Globulin Ratio % Lipase 40 (13-60) units/L HCG, Quant 5.12 H (0-4) mIU/mL Urine Color (Yellow) Urine Turbidity (Clear) Urine pH (5.0-7.0) Ur Specific [place] (1.003-1.030) Urine Protein (Negative) mg/dL Urine Glucose (UA) (Negative) mg/dL Urine Ketones (Negative) mg/dL Urine Blood (Negative) Urine Nitrite (Negative) Urine Bilirubin (Negative) Urine Urobilinogen (<2.0) mg/dL Ur Leukocyte Esterase (Negative) Urine WBC (Auto) (0.0-6.0) /HPF Urine RBC (Auto) (0.0-6.0) /HPF U Epithel Cells (Auto) (0-13.0) /HPF Urine Bacteria (Auto) (Negative) /HPF Urine Mucus /HPF Urine Yeast (Budding) /HPF Urine HCG, Qual (Negative) 08/16/21 08/16/21 08/16/21 Range/Units 15:03 15:44 Unknown WBC (4.5-11.0) K/mm3 RBC (3.65-5.03) M/mm3 Hgb (10.1-14.3) gm/dl Hct (30.3-42.9) % MCV (79-97) fl MCH (28-32) pg MCHC (30-34) % RDW (13.2-15.2) % Plt Count (140-440) K/mm3 Lymph % (Auto) (13.4-35.0) % [place] % (Auto) (0.0-7.3) % Eos % (Auto) (0.0-4.3) % Baso % (Auto) (0.0-1.8) % Lymph # (Auto) (1.2-5.4) K/mm3 [place] # (Auto) (0.0-0.8) K/mm3 Eos # (Auto) (0.0-0.4) K/mm3 Baso # (Auto) (0.0-0.1) K/mm3 Seg Neutrophils % (40.0-70.0) % Seg Neutrophils # (1.8-7.7) K/mm3 Sodium 143 (137-145) mmol/L Potassium 4.2 (3.6-5.0) mmol/L Chloride 107.9 H (98-107) mmol/L Carbon Dioxide 24 (22-30) mmol/L Anion Gap 15 mmol/L BUN 14 (7-17) mg/dL Creatinine 1.2 (0.6-1.2) mg/dL Estimated GFR 58 ml/min BUN/Creatinine Ratio 12 % Glucose 160 H (65-100) mg/dL Calcium 9.2 (8.4-10.2) mg/dL Total Bilirubin 0.20 (0.1-1.2) mg/dL Direct Bilirubin < 0.2 (0-0.2) mg/dL Indirect Bilirubin 0.0 mg/dL AST 9 (5-40) units/L ALT 6 L (7-56) units/L Alkaline Phosphatase 71 (35-129) units/L Total Protein 7.0 (6.3-8.2) g/dL Albumin 3.8 L (3.9-5) g/dL Albumin/Globulin Ratio 1.2 % Lipase (13-60) units/L HCG, Quant (0-4) mIU/mL Urine Color Yellow (Yellow) Urine Turbidity Slightly-cloudy (Clear) Urine pH 5.0 (5.0-7.0) Ur Specific [place] 1.010 (1.003-1.030) Urine Protein <15 mg/dl (Negative) mg/dL Urine Glucose (UA) 50 (Negative) mg/dL Urine Ketones Neg (Negative) mg/dL Urine Blood Neg (Negative) Urine Nitrite Pos (Negative) Urine Bilirubin Neg (Negative) Urine Urobilinogen < 2.0 (<2.0) mg/dL Ur Leukocyte Esterase Lg (Negative) Urine WBC (Auto) 56.0 H (0.0-6.0) /HPF Urine RBC (Auto) 11.0 (0.0-6.0) /HPF U Epithel Cells (Auto) 14.0 H (0-13.0) /HPF Urine Bacteria (Auto) 2+ (Negative) /HPF Urine Mucus Few /HPF Urine Yeast (Budding) 1+ /HPF Urine HCG, Qual Positive A (Negative) - Medical Decision Making 50-year-old female that presents with UTI, pelvic pain with nausea vomiting w/ positive test. Patient is stable and was examined by me. Vital signs at this time are stable. Patient signed out to Dr. Edgar during end of shift for further evaluation, treatment and appropriate disposition. At time of sign out, the patient does not seem toxic or ill in appearance. No acute signs of distress noted. Patient agrees to ED plan of care. No further questions noted by the patient. ED Disposition Clinical Impression: Nausea & vomiting, Lower abdominal pain, Positive test Disposition: HOME / SELF CARE / HOMELESS Condition: Stable Instructions: Abdominal Pain (ED), Nausea and Vomiting, Adult Referrals: PRIMARY CARE, [Primary Care Provider] - 3-5 Days <SEMAJ EDGAR - Last Filed: 08/16/21 19:41> ED Review of Systems ROS: Stated complaint: ABDOMINAL PAIN Other details as noted in HPI ED Course Vital Signs 08/16/21 08/16/21 03:17 15:43 Temperature 98.6 F 98.7 F Pulse Rate 88 90 Respiratory 16 18 Rate Blood Pressure 148/89 153/76 [Right] O2 Sat by Pulse 100 100 Oximetry ED Medical Decision Making - Lab Data Result diagrams: 08/16/21 15:03 08/16/21 15:03 - Medical Decision Making Quantitative hCG 5.12 corresponding to gestation of up to 3 weeks. Transvaginal ultrasound shows normal right ovary however they were unable to visualize the uterus or left ovary. Given patient's age and low hCG level, false positive is possible. CBC and CMP grossly unremarkable. Patient stable for discharge home with return precautions. Follow-up with PCP/OB within 1 week. Critical care attestation.: If time is entered above; I have spent that time in minutes in the direct care of this critically ill patient, excluding procedure time. ED Disposition Is pt being admited?: No Does the pt Need Aspirin: No Time of Disposition: 19:40
[2021-08-16] MEDS ORDERED: HYDROcodone/ACETAMINOPHEN 5-325 MG TAB PO ONE (19:39)
[2021-08-16] MEDS ORDERED: MORPHINE 4 MG/1 ML INJ IM ONE (19:39)
--- NOTE | 2021-08-16 19:50 | Ultrasound Report ---
US OB <= 14 weeks fetus, US OB transvaginal INDICATION / CLINICAL INFORMATION: pelvic pain. TECHNIQUE: Transabdominal and Transvaginal. Duplex Color Doppler used: Yes. COMPARISON: None available FINDINGS: UTERUS: Uterus measures 7.8 x 4.9 x 5.5 cm. Multiple myometrial masses are present throughout the [place], likely reflecting uterine fibroids, largest measuring 2.4 cm. Endometrial stripe is not visualiz ed. No intrauterine is identified. RIGHT ADNEXA: No significant ovarian cyst or mass. Normal color Doppler blood flow. LEFT ADNEXA: Left ovary is not seen. No suspicious adnexal cyst or mass. URINARY BLADDER: No significant abnormality. FREE FLUID: None. ADDITIONAL FINDINGS: None. IMPRESSION: 1. Fibroid uterus. Endometrial stripe is not visualized due to multiple fibroids. No intrauterine pre gnancy is identified. Recommend continued follow-up with beta hCG, as clinically indicated. 2. Nonvisualization of the left ovary. No significant adnexal cyst or mass identified. Signer Name: Garth Hinojosa MD Signed: 08/16/2021 7:45 PM Workstation Name: [id number]
--- NOTE | 2021-08-16 19:50 | Ultrasound Report ---
US OB <= 14 weeks fetus, US OB transvaginal INDICATION / CLINICAL INFORMATION: pelvic pain. TECHNIQUE: Transabdominal and Transvaginal. Duplex Color Doppler used: Yes. COMPARISON: None available FINDINGS: UTERUS: Uterus measures 7.8 x 4.9 x 5.5 cm. Multiple myometrial masses are present throughout the [place], likely reflecting uterine fibroids, largest measuring 2.4 cm. Endometrial stripe is not visualiz ed. No intrauterine is identified. RIGHT ADNEXA: No significant ovarian cyst or mass. Normal color Doppler blood flow. LEFT ADNEXA: Left ovary is not seen. No suspicious adnexal cyst or mass. URINARY BLADDER: No significant abnormality. FREE FLUID: None. ADDITIONAL FINDINGS: None. IMPRESSION: 1. Fibroid uterus. Endometrial stripe is not visualized due to multiple fibroids. No intrauterine pre gnancy is identified. Recommend continued follow-up with beta hCG, as clinically indicated. 2. Nonvisualization of the left ovary. No significant adnexal cyst or mass identified. Signer Name: Garth Hinojosa MD Signed: 08/16/2021 7:45 PM Workstation Name: [id number]
[2021-08-16 20:01] VITALS: BP 152/77
== END 2021-08-16 20:01 | disposition home or self-care (01) ==
LOC: ED 03:06
DX: R11.2 Nausea with vomiting, unspecified (principal); R10.30 Lower abdominal pain, unspecified; Z32.01 Encounter for pregnancy test, result positive
CPT/HCPCS: 36415; 76801; 76817; 80048; 80076; 81001; 81025; 83690; 84702; 85025; 87086; 96361; 96372; 96374; 96375; 99284; J2270; J2405; J7030

== ENCOUNTER 2021-08-21 22:14 | Emergency (ER) | payer SELFPAY ==
[2021-08-22 08:48] LABS: Basophils % (Auto) 0.8 % (0.0-1.8); Eosinophils # (Auto) 0.2 K/mm3 (0.0-0.4); Hematocrit 34.1 % (30.3-42.9); Lymphocytes # (Auto) 1.9 K/mm3 (1.2-5.4); Lymphocytes % (Auto) 36.1 % (13.4-35.0); Mean Corpuscular HGB Conc 32 % (30-34); Mean Corpuscular Volume 90 fl (79-97); Monocytes # (Auto) 0.4 K/mm3 (0.0-0.8); Monocytes % (Auto) 7.7 % (0.0-7.3); Platelet Count 356 K/mm3 (140-440); Red Blood Count 3.78 M/mm3 (3.65-5.03); Red Cell Distribution Width 15.4 % (13.2-15.2)
[2021-08-22 09:19] LABS: Albumin 4.2 g/dL (3.9-5); BUN/Creatinine Ratio 8; Blood Urea Nitrogen 11 mg/dL (7-17); Calcium 9.5 mg/dL (8.4-10.2); Hemolysis Index 23
[2021-08-22 09:29] LABS: Alanine Aminotransferase < 5 units/L (7-56)
[2021-08-22] MEDS ORDERED: DICYCLOMINE 10 MG/5 ML ORAL LIQD PO ONE (10:48)
[2021-08-22] MEDS ORDERED: ALUM-MAG HYDROXIDE-SIMETHICONE 200-200-20MG/5ML ORAL LIQD 30 ML PO ONE (10:49)
[2021-08-22] MEDS ORDERED: LIDOCAINE VISCOUS 2% 15 ML ORAL LIQD PO ONE (10:49)
[2021-08-22] MEDS ORDERED: oxyCODONE /ACETAMINOPHEN 5-325MG TAB PO ONE (10:50)
[2021-08-22] MEDS ORDERED: ONDANSETRON 4 MG ODT TAB PO ONE (10:50)
--- NOTE | 2021-08-22 11:34 | XRay Report ---
XR abdomen 1V ap, XR chest routine 2V INDICATION / CLINICAL INFORMATION: abd pain, r/o constipation. COMPARISON: None available. FINDINGS: TUBES / LINES: None. CHEST: Heart size is normal. Lungs are clear. No pleural effusion or pneumothorax. BOWEL GAS PATTERN: Bowel gas pattern is nonobstructive. Moderate colonic stool burden. FREE AIR / EXTRALUMINAL GAS: None seen. ADDITIONAL FINDINGS: No significant additional findings. IMPRESSION: 1. No acute abnormality of the chest or abdomen. 2. Moderate colonic stool burden, compatible with constipation. Signer Name: Garth Hinojosa MD Signed: 08/22/2021 11:29 AM Workstation Name: [id number]
[2021-08-22 14:16] LABS: Bilirubin,Urine NEG (Negative); Blood,Urine NEG (Negative); Color,Urine Yellow (Yellow); Protein,Urine <15 mg/dL mg/dL (Negative); Urobilinogen,Urine < 2.0 mg/dL (<2.0)
[2021-08-22 14:33] LABS: Bacteria,Urine 2+ /HPF (Negative); Hyaline Casts,Urine 6 /LPF; Mucus,Urine FEW /HPF
[2021-08-22] MEDS ORDERED: MAGNESIUM CITRATE 300 ML ORAL LIQD PO ONE (14:42)
[2021-08-22] MEDS ORDERED: ONDANSETRON 4 MG/2 ML INJ IV ONE (14:42)
[2021-08-22] MEDS ORDERED: MORPHINE 4 MG/1 ML INJ IV ONE (14:42)
[2021-08-22] MEDS ORDERED: KETOROLAC 30 MG/1 ML INJ IV ONE (14:45)
--- NOTE | 2021-08-22 15:27 | Emergency Department Report ---
ED Abdominal Pain HPI - General Chief Complaint: Extremity Problem,Nontraumatic Stated Complaint: CP,NEUROPATHY Time Seen by Provider: 08/22/21 10:13 Source: patient Mode of arrival: Ambulatory Limitations: No Limitations - History of Present Illness Initial Comments: 50-year-old black female with a past medical history of prediabetes presents to the emergency department for evaluation of 1 week history of chest pain, several week history of epigastric pain, and chronic leg and foot pain that has been worse over the past week. He states that chest pain is midsternal mostly but sometimes she feels in her left breast area she describes the pain as sharp sharp pain that is intermittent. She denies shortness of breath, nausea, vomiting, dizziness, and diaphoresis. She states that she has some persistent epigastric pain that she was seen for several months ago, started Protonix, had some improvement, but has not been taking Protonix over the past several weeks. She also complains of bilateral lower extremity pain. She states that she has a history of neuropathies but pain is just worse this week. She denies any injury. She also states that she has not been able to have a bowel movement over the last for 5 days. She states that she was recently treated for urinary tract infection and just completed antibiotics 2 or 3 days ago. MD Complaint: abdominal pain -: week(s) (1) Location: epigastric Radiation: none Migration to: no migration Severity: severe Severity scale (0 -10): 10 Quality: cramping, aching Consistency: constant Associated Symptoms: denies: nausea, vomiting, diarrhea, fever, chills, dysuria, hematemesis, hematochezia, melena, hematuria, anorexia, syncope - Related Data LMP (females 10-50): other (Menopausal) Previous Rx's Medication Instructions Recorded Last Taken Type Esomeprazole Magnesium [NexIUM] 40 mg PO QDAY #15 cap 06/28/21 Unknown Rx Ferrous Sulfate [Ferrous Sulfate 324 mg PO BID #60 tab 06/28/21 Unknown Rx 324 MG] Multivitamin with Folic Acid [[facility] 400 mcg PO QDAY #30 tablet 06/28/21 Unknown Rx One Daily Essential Tablet] Nicotine Polacrilex [Nicotine Gum] 4 mg BC PRN #1 pack 06/28/21 Unknown Rx Ondansetron [Zofran ODT TAB] 4 mg PO Q6H PRN #12 tab.rapdis 06/28/21 Unknown Rx polyethylene glycoL 3350 [Miralax 17 gm PO QDAY #30 packet 06/28/21 Unknown Rx 3350] HYDROcodone/APAP 5-325 [Vinton 1 each PO Q6HR PRN #5 tablet 08/16/21 Unknown Rx 5/325] Polyethylene Glycol 3350 [Miralax] 17 gm PO DAILY #1 bottle 08/22/21 Unknown Rx Allergies Allergy/AdvReac Type Severity Reaction Status Date / Time tramadol AdvReac Itching Verified 05/14/21 07:28 ED Review of Systems ROS: Stated complaint: CP,NEUROPATHY Other details as noted in HPI Comment: All other systems reviewed and negative Constitutional: denies: chills, fever Eyes: denies: eye pain, eye discharge, vision change ENT: denies: congestion Respiratory: denies: cough, orthopnea, shortness of breath, SOB with exertion, SOB at rest, stridor, wheezing Cardiovascular: chest pain. denies: palpitations, dyspnea on exertion, orthopnea, edema, syncope, paroxysmal nocturnal dyspnea Gastrointestinal: abdominal pain. denies: nausea, vomiting, diarrhea, hematemesis, melena, hematochezia Genitourinary: denies: urgency, dysuria, frequency, hematuria, discharge Musculoskeletal: denies: back pain Skin: denies: rash, lesions Neurological: denies: headache, weakness, numbness, paresthesias, confusion, abnormal gait, vertigo ED Past Medical Hx - Past Medical History Hx Hypertension: No Hx Diabetes: Yes (only takes insulin as needed) - Surgical History Additional Surgical History: Right arm rotator cuff repair - Social History Smoking Status: Never Smoker Substance Use Type: None - Medications Home Medications: Home Medications Medication Instructions Recorded Confirmed Last Taken Type Esomeprazole Magnesium [NexIUM] 40 mg PO QDAY #15 cap 06/28/21 Unknown Rx Ferrous Sulfate [Ferrous Sulfate 324 mg PO BID #60 tab 06/28/21 Unknown Rx 324 MG] Multivitamin with Folic Acid [[facility] 400 mcg PO QDAY #30 tablet 06/28/21 Unknown Rx One Daily Essential Tablet] Nicotine Polacrilex [Nicotine Gum] 4 mg BC PRN #1 pack 06/28/21 Unknown Rx Ondansetron [Zofran ODT TAB] 4 mg PO Q6H PRN #12 tab.rapdis 06/28/21 Unknown Rx polyethylene glycoL 3350 [Miralax 17 gm PO QDAY #30 packet 06/28/21 Unknown Rx 3350] HYDROcodone/APAP 5-325 [Vinton 1 each PO Q6HR PRN #5 tablet 08/16/21 Unknown Rx 5/325] Polyethylene Glycol 3350 [Miralax] 17 gm PO DAILY #1 bottle 08/22/21 Unknown Rx ED Physical Exam - General Limitations: No Limitations General appearance: alert, in no apparent distress - Head Head exam: Present: atraumatic, normocephalic - Eye Eye exam: Present: normal appearance. Absent: conjunctival injection - Neck Neck exam: Present: normal inspection, full ROM. Absent: tenderness, lymphadenopathy - Respiratory Respiratory exam: Present: normal lung sounds bilaterally. Absent: respiratory distress, wheezes, rales, rhonchi, stridor, chest wall tenderness - Cardiovascular Cardiovascular Exam: Present: tachycardia, normal heart sounds - GI/Abdominal GI/Abdominal exam: Present: soft, normal bowel sounds. Absent: distended, tenderness, guarding, rebound, rigid - Extremities Exam Extremities exam: Present: full ROM, normal capillary refill. Absent: normal inspection, pedal edema, joint swelling, calf tenderness - Expanded Lower Extremity Exam Left Ankle exam: Present: swelling Neuro vascular tendon exam: Present: no vascular compromise. Absent: pulse deficit, abnormal cap refill, extremity cold to touch, pallor Right Ankle exam: Present: swelling Neuro vascular tendon exam: Present: no vascular compromise. Absent: pulse deficit, abnormal cap refill, extremity cold to touch, pallor - Back Exam Back exam: Present: normal inspection, full ROM. Absent: tenderness, CVA tenderness (R), CVA tenderness (L), vertebral tenderness - Neurological Exam Neurological exam: Present: alert, oriented X3, CN II-XII intact, normal gait - Psychiatric Psychiatric exam: Present: normal affect, normal mood - Skin Skin exam: Present: warm, dry, intact, normal color ED Course Vital Signs 08/21/21 08/22/21 08/22/21 22:50 13:04 13:33 Temperature 98.7 F Pulse Rate 101 H 85 Respiratory 18 18 18 Rate Blood Pressure 150/67 Blood Pressure 139/87 [Left] O2 Sat by Pulse 100 99 99 Oximetry 08/22/21 16:21 Temperature Pulse Rate 80 Respiratory 17 Rate Blood Pressure Blood Pressure 115/65 [Left] O2 Sat by Pulse 99 Oximetry ED Medical Decision Making - Lab Data Result diagrams: 08/22/21 08:28 08/22/21 08:28 - EKG Data EKG shows normal: sinus rhythm Rate: normal - EKG Data Interpretation: unchanged when compared t - Radiology Data Radiology results: report reviewed, image reviewed Chest x-ray and KUB: FINDINGS: TUBES / LINES: None. CHEST: Heart size is normal. Lungs are clear. No pleural effusion or pneumothorax. BOWEL GAS PATTERN: Bowel gas pattern is nonobstructive. Moderate colonic stool burden. FREE AIR / EXTRALUMINAL GAS: None seen. ADDITIONAL FINDINGS: No significant additional findings. IMPRESSION: 1. No acute abnormality of the chest or abdomen. 2. Moderate colonic stool burden, compatible with constipation. - Medical Decision Making 50-year-old black female with a past medical history of prediabetes presents to the emergency department for evaluation of 1 week history of chest pain, several week history of epigastric pain, and chronic leg and foot pain that has been worse over the past week. He states that chest pain is midsternal mostly but sometimes she feels in her left breast area she describes the pain as sharp sharp pain that is intermittent. She denies shortness of breath, nausea, vomiting, dizziness, and diaphoresis. She states that she has some persistent epigastric pain that she was seen for several months ago, started Protonix, had some improvement, but has not been taking Protonix over the past several weeks. She also complains of bilateral lower extremity pain. She states that she has a history of neuropathies but pain is just worse this week. She denies any injury. She also states that she has not been able to have a bowel movement over the last for 5 days. She states that she was recently treated for urinary tract infection and just completed antibiotics 2 or 3 days ago. Physical exam unremarkable. EKG without any acute ischemic changes noted, troponin negative x2, BMP within normal limits, no acute gross abnormalities noted all other labs. UA negative for UTI. Chest x-ray without any acute abnormalities noted, and KUB positive for constipation. Pain improved after medications. Patient given 1 bottle of mag citrate in the emergency department and advised to take MiraLAX daily until she has some improvement. She is advised to follow with her primary care provider regarding neuropathy pain and return to the emergency department as needed. She verbalizes understanding of and agreement with plan of care. Critical care attestation.: If time is entered above; I have spent that time in minutes in the direct care of this critically ill patient, excluding procedure time. ED Disposition Clinical Impression: Epigastric pain, Bilateral leg pain Constipation Qualifiers: Constipation type: unspecified constipation type Qualified Code(s): K59.00 - Constipation, unspecified Disposition: 01 HOME / SELF CARE / HOMELESS Is pt being admited?: No Does the pt Need Aspirin: No Condition: Stable Instructions: How to Use Cold Therapy, [id number], Constipation, Adult, [id number], Abdominal Pain, Adult, [id number] Additional Instructions: Take medications as prescribed. Restart Protonix as previously prescribed. Follow-up with your primary care provider for further evaluation and management. Return to the emergency department as needed. Prescriptions: Polyethylene Glycol 3350 [Miralax] 17 gm PO DAILY #1 bottle Referrals: CHINO LUONG MD [Primary Care Provider] - 3-5 Days Time of Disposition: 15:31 ED Chest Pain HPI - General Chief Complaint: Extremity Problem,Nontraumatic Stated Complaint: CP,NEUROPATHY Time Seen by Provider: 08/22/21 10:13 - History of Present Illness Timing/Duration: 1 week Severity/Quality: severe, aching Location: substernal Chest Pain Radiation: other (Left chest) Activities at Onset: none Associated Symptoms: abdominal pain. denies: back pain, diaphoresis, dizziness, edema, fatigue, fever/chills, headache, heartburn, nausea/vomiting, rash, shortness of breath, swelling/lump in chest, syncope, weakness Allergies/Adverse Reactions: Allergies tramadol Adverse Reaction (Verified 05/14/21 07:28) Itching Home Medications: Ambulatory Orders Esomeprazole Magnesium [NexIUM] 40 mg PO QDAY #15 cap 06/28/21 Ferrous Sulfate [Ferrous Sulfate 324 MG] 324 mg PO BID #60 tab 06/28/21 Multivitamin with Folic Acid [[facility] One Daily Essential Tablet] 400 mcg PO QDAY #30 tablet 06/28/21 Nicotine Polacrilex [Nicotine Gum] 4 mg BC PRN #1 pack 06/28/21 Ondansetron [Zofran ODT TAB] 4 mg PO Q6H PRN #12 tab.rapdis 06/28/21 polyethylene glycoL 3350 [Miralax 3350] 17 gm PO QDAY #30 packet 06/28/21 HYDROcodone/APAP 5-325 [Vinton 5/325] 1 each PO Q6HR PRN #5 tablet 08/16/21 Polyethylene Glycol 3350 [Miralax] 17 gm PO DAILY #1 bottle 08/22/21
[2021-08-22 16:21] VITALS: BP 115/65
--- NOTE | 2021-08-23 19:01 | Electrocardiograph Report ---
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
== END 2021-08-22 16:20 | disposition home or self-care (01) ==
LOC: ED 22:14
DX: R10.13 Epigastric pain (principal); M79.605 Pain in left leg; M79.604 Pain in right leg; K59.00 Constipation, unspecified; Z88.5 Allergy status to narcotic agent
CPT/HCPCS: 36415; 71046; 74018; 80053; 81001; 83880; 84484; 85025; 87086; 93005; 96374; 96375; 99284; J1885; J2270; J2405; J3490; Q0162

== ENCOUNTER 2021-09-10 09:00 | Emergency (ER) | payer SELFPAY ==
[2021-09-10 09:35] VITALS: BP 137/74
[2021-09-10] MEDS ORDERED: ALUM-MAG HYDROXIDE-SIMETHICONE 200-200-20MG/5ML ORAL LIQD 30 ML PO ONE (11:51)
[2021-09-10] MEDS ORDERED: LIDOCAINE VISCOUS 2% 15 ML ORAL LIQD PO ONE (11:51)
[2021-09-10] MEDS ORDERED: PANTOPRAZOLE 40 MG TAB PO ONE (11:51)
--- NOTE | 2021-09-10 12:03 | Emergency Department Report ---
ED Abdominal Pain HPI - General Chief Complaint: Abdominal Pain Stated Complaint: CHEST PAIN/STOMACH PAIN PUI?: No Time Seen by Provider: 09/10/21 11:50 Source: patient Mode of arrival: Ambulatory Limitations: No Limitations - History of Present Illness Initial Comments: 50 YO COMES TO ER OFTEN FOR SAME SEE EMR EMR REVIEWED LABS/LIPASE/CT NOTED HAS GI APPNT AT [facility] IN OCTOBER NEEDS EGD NO N/V/D ABD EXAM BENIGN AMBULATORY NO FEVER NO TACHYCARDIA NO HYPOTENSION EDUCATED ON SMOKING CESSATION MD Complaint: abdominal pain -: Gradual, month(s) Location: epigastric Radiation: none Migration to: no migration Quality: burning Consistency: intermittent Improves With: nothing Worsens With: nothing Associated Symptoms: denies other symptoms. denies: nausea, vomiting, diarrhea, fever, chills, constipation, dysuria, hematemesis, hematochezia, melena, hematuria, anorexia, syncope - Related Data Allergies Allergy/AdvReac Type Severity Reaction Status Date / Time tramadol AdvReac Itching Verified 05/14/21 07:28 ED Review of Systems ROS: Stated complaint: CHEST PAIN/STOMACH PAIN Other details as noted in HPI Comment: All other systems reviewed and negative ED Past Medical Hx - Past Medical History Previous Medical History?: Yes Hx Hypertension: No Hx Diabetes: Yes (only takes insulin as needed) Additional medical history: GERD/NEUROPATHY - Surgical History Past Surgical History?: Yes Additional Surgical History: Right arm rotator cuff repair - Family History Family history: no significant - Social History Smoking Status: Never Smoker ED Physical Exam - General Limitations: No Limitations General appearance: alert, in no apparent distress - Head Head exam: Present: atraumatic, normocephalic - Eye Eye exam: Present: normal appearance - ENT ENT exam: Present: mucous membranes moist - Neck Neck exam: Present: normal inspection - Respiratory Respiratory exam: Present: normal lung sounds bilaterally. Absent: respiratory distress - Cardiovascular Cardiovascular Exam: Present: regular rate, normal rhythm. Absent: systolic murmur, diastolic murmur, rubs, gallop - GI/Abdominal GI/Abdominal exam: Present: soft, normal bowel sounds - Extremities Exam Extremities exam: Present: normal inspection - Back Exam Back exam: Present: normal inspection - Neurological Exam Neurological exam: Present: alert, oriented X3 - Psychiatric Psychiatric exam: Present: normal affect, normal mood - Skin Skin exam: Present: warm, dry, intact, normal color. Absent: rash ED Course Vital Signs 09/10/21 09:28 Temperature 98.2 F Pulse Rate 92 H Respiratory 18 Rate Blood Pressure 137/74 O2 Sat by Pulse 98 Oximetry ED Medical Decision Making - Medical Decision Making GI COCKTAIL AND PROTONIX IN ER WITH RELIEF PT EDUCATED ON FOLLOW UP WITH [facility] FOR ENDOSCOPY SCHEDULED ABD EXAM BENIGN EMR REVIEWED PT AND I HAVE REVIEWED HER MEDS TAKING PO\ Vital Signs 09/10/21 09:28 Temperature 98.2 F Pulse Rate 92 H Respiratory 18 Rate Blood Pressure 137/74 O2 Sat by Pulse 98 Oximetry - Differential Diagnosis A/C GASTRITIS Critical care attestation.: If time is entered above; I have spent that time in minutes in the direct care of this critically ill patient, excluding procedure time. ED Disposition Clinical Impression: GERD (gastroesophageal reflux disease) Qualifiers: Esophagitis presence: esophagitis presence not specified Qualified Code(s): K21.9 - Gastro-esophageal reflux disease without esophagitis Disposition: 01 HOME / SELF CARE / HOMELESS Is pt being admited?: No Does the pt Need Aspirin: No Condition: Stable Instructions: Abdominal Pain (ED) Additional Instructions: MEDS WE DISCUSSED TODAY FOLLOW UP WITH [facility] FOR ENDOSCOPY WE DISCUSSED DIET - BLAND AVOID SMOKING Referrals: [facility] [Outside] - 3-5 Days Time of Disposition: 12:06
--- NOTE | 2021-09-12 08:50 | Electrocardiograph Report ---
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
== END 2021-09-10 12:42 | disposition home or self-care (01) ==
LOC: ED 09:00
DX: K21.9 Gastro-esophageal reflux disease without esophagitis (principal); E11.9 Type 2 diabetes mellitus without complications; Z98.890 Other specified postprocedural states; Z88.8 Allergy status to other drugs, medicaments and biological substances
CPT/HCPCS: 93005; 99282